=== PATIENT | male | born 2000 | race Hispanic/Latino ===

== ENCOUNTER 2022-10-14 13:52 | Emergency (ER) | payer OTHER, SELFPAY ==
--- NOTE | 2022-10-14 16:15 | EDPHYS ---
Physician Documentation [facility] Name: Lupillo Jernigan Age: 22 yrs Sex: Male : 2000 Arrival Date: 10/14/2022 Time: 13:52 Bed IW1 Private MD: ED Physician Devon Palma HPI: 10/14 17:23 This 22 yrs old Male presents to ER via EMS with complaints of Heat exhaustion kdr and syncope. 17:23 Patient states that he had walked to work for about an hour and a half. This is not kdr unusual activity for him. His time of arrival is usually 1 PM. Today he walked to work and then continue to be sweaty and hot after arriving and within about 15 to 20 minutes of arriving he had a syncopal episode. He said he felt lightheaded and dizzy and sat down and then nearly passed out. The next thing remembers is people asking him if he is okay. Patient otherwise did not injure himself is otherwise stable in the ED. Nontoxic-appearing and not back to baseline at time of initial presentation. Onset: The symptoms/episode began/occurred suddenly, just prior to arrival. Severity of symptoms: At their worst the symptoms were mild moderate incapacitating in the emergency department the symptoms have resolved. The patient has not experienced similar symptoms in the past. The patient has not recently seen a physician. Historical: - Allergies: 13:55 No Known Allergies; mb9 - Home Meds: 13:55 None [Active]; mb9 - PMHx: 13:55 Asthma; mb9 - PSHx: 13:55 None; mb9 - Immunization history:: Adult Immunizations up to date. - Social history:: Smoking status: Reported history of juuling and/or vaping. ROS: 17:23 Constitutional: Negative for fever, chills, and weight loss, Eyes: Negative for injury, kdr pain, redness, and discharge, ENT: Negative for injury, pain, and discharge, Neck: Negative for injury, pain, and swelling, Cardiovascular: Negative for chest pain, palpitations, and edema, Respiratory: Negative for shortness of breath, cough, wheezing, and pleuritic chest pain, Abdomen/GI: Negative for abdominal pain, nausea, vomiting, diarrhea, and constipation, Back: Negative for injury and pain, : Negative for injury, bleeding, discharge, and swelling, MS/Extremity: Negative for injury and deformity, Skin: Negative for injury, rash, and discoloration, Psych: Negative for depression, anxiety, suicide ideation, homicidal ideation, and hallucinations, Allergy/Immunology: Negative for hives, rash, and allergies, Endocrine: Negative for neck swelling, polydipsia, polyuria, polyphagia, and marked weight changes, Hematologic/Lymphatic: Negative for swollen nodes, abnormal bleeding, and unusual bruising. 17:23 Neuro: Positive for altered mental status, loss of consciousness, syncope, Negative for gait disturbance, headache, hearing loss, numbness, seizure activity, speech changes, tingling, tinnitus, tremor, visual changes, weakness. Exam: 17:23 Constitutional: This is a well developed, well nourished patient who is awake, alert, kdr and in no acute distress. Head/Face: Normocephalic, atraumatic. Eyes: Pupils equal round and reactive to light, extra-ocular motions intact. Lids and lashes normal. Conjunctiva and sclera are non-icteric and not injected. Cornea within normal limits. Periorbital areas with no swelling, redness, or edema. Neck: Trachea midline, no thyromegaly or masses palpated, and no cervical lymphadenopathy. Supple, full range of motion without nuchal rigidity, or vertebral point tenderness. No Meningismus. Chest/axilla: Normal chest wall appearance and motion. Nontender with no deformity. No lesions are appreciated. Cardiovascular: Regular rate and rhythm with a normal S1 and S2. No gallops, murmurs, or rubs. Normal PMI, no JVD. No pulse deficits. Respiratory: Lungs have equal breath sounds bilaterally, clear to auscultation and percussion. No rales, rhonchi or wheezes noted. No increased work of breathing, no retractions or nasal flaring. Abdomen/GI: Soft, non-tender, with normal bowel sounds. No distension or tympany. No guarding or rebound. No evidence of tenderness throughout. Back: No spinal tenderness. No costovertebral tenderness. Full range of motion. Skin: Warm, dry with normal turgor. Normal color with no rashes, no lesions, and no evidence of cellulitis. MS/ Extremity: Pulses equal, no cyanosis. Neurovascular intact. Full, normal range of motion. Neuro: Awake and alert, GCS 15, oriented to person, place, time, and situation. Cranial nerves II-XII grossly intact. Motor strength 5/5 in all extremities. Sensory grossly intact. Cerebellar exam normal. Normal gait. Psych: Awake, alert, with orientation to person, place and time. Behavior, mood, and affect are within normal limits. Vital Signs: 13:55 BP 130 / 80; Pulse 92; Resp 18; Temp 99.2; Pulse Ox 97% on R/A; Weight 108.86 kg; mb9 Height 5 ft. 7 in. ; Pain 0/10; 13:55 Body Mass Index 37.59 (108.86 kg, 170.18 cm) mb9 13:55 Pain Scale: Adult mb9 MDM: 16:15 Patient medically screened. kdr 17:23 Data reviewed: vital signs, nurses notes, lab test result(s). kdr Administered Medications: No medications were administered Disposition Summary: 10/14/22 16:15 Discharge Ordered Location: Home kdr Problem: new kdr Symptoms: are resolved kdr Condition: Stable kdr Diagnosis - Heat exhaustion, unspecified kdr - Dehydration kdr - Heat syncope kdr Followup: kdr - With: Private Physician - When: 2 - 3 days - Reason: If symptoms return, Further diagnostic work-up, Recheck today's complaints, Continuance of care, Re-evaluation by your physician Discharge Instructions: - Discharge Summary Sheet kdr - Dehydration, Adult kdr - Heat Exhaustion kdr - Dehydration, Adult, [id number] kdr - Rehydration, Adult kdr Forms: - Medication Reconciliation Form kdr - Thank You Letter kdr - Patient Portal Instructions kdr - Work release form eb Signatures: Dveon Palma MD MD kdr Jazz Hidalgo RN RN mb9
--- NOTE | 2022-10-14 16:15 | ER ---
Nurse's Notes [facility] Name: Lupillo Jernigan Age: 22 yrs Sex: Male : 2000 Arrival Date: 10/14/2022 Time: 13:52 Bed IW1 Private MD: Diagnosis: Heat exhaustion, unspecified;Dehydration;Heat syncope Presentation: 10/14 13:53 Chief complaint: EMS states: "Toned out for unwitnessed syncopal episode at work. Pt mb9 states he walked from [place] to [place], did not drink or eat today. Pt denies any pain and states he feels better now. Gave 1 liter of NS via 18 g left AC". Coronavirus screen: Vaccine status: Patient reports being unvaccinated. 13:53 Method Of Arrival: EMS: [facility] mb9 13:55 Ebola Screen: No symptoms or risks identified at this time. Initial Sepsis Screen: Does mb9 the patient meet any 2 criteria? No. Patient's initial sepsis screen is negative. Does the patient have a suspected source of infection? No. Patient's initial sepsis screen is negative. Risk Assessment: Do you want to hurt yourself or someone else? Patient reports no desire to harm self or others. Onset of symptoms was October 14, 2022. 13:55 Acuity: LANDEN 3 mb9 Triage Assessment: 13:56 General: Appears in no apparent distress. Behavior is calm, cooperative. Pain: Denies mb9 pain. Neuro: [place] Agitation-Sedation Scale (RASS): 0 - Alert and Calm Level of Consciousness is awake, alert, obeys commands, Oriented to person, place, time, situation, Appropriate for age Denies weakness dizziness. Cardiovascular: Patient's skin is warm and dry. Respiratory: Airway is patent Respiratory effort is even, unlabored, Respiratory pattern is regular, symmetrical. GI: No signs and/or symptoms were reported involving the gastrointestinal system. : No signs and/or symptoms were reported regarding the genitourinary system. Derm: Skin is pink, warm \\T\\ dry. Musculoskeletal: Range of motion: intact in all extremities. Historical: - Allergies: 13:55 No Known Allergies; mb9 - Home Meds: 13:55 None [Active]; mb9 - PMHx: 13:55 Asthma; mb9 - PSHx: 13:55 None; mb9 - Immunization history:: Adult Immunizations up to date. - Social history:: Smoking status: Reported history of juuling and/or vaping. Assessment: 13:57 Reassessment: see triage assessment. mb9 Vital Signs: 13:55 BP 130 / 80; Pulse 92; Resp 18; Temp 99.2; Pulse Ox 97% on R/A; Weight 108.86 kg; mb9 Height 5 ft. 7 in. ; Pain 0/10; 13:55 Body Mass Index 37.59 (108.86 kg, 170.18 cm) mb9 13:55 Pain Scale: Adult mb9 ED Course: 13:52 Patient arrived in ED. mb9 13:54 Devon Palma MD is Attending Physician. kdr 13:55 Triage completed. mb9 13:55 Arm band placed on. mb9 16:25 No provider procedures requiring assistance completed. IV discontinued, intact, ss bleeding controlled, No redness/swelling at site. Pressure dressing applied. Administered Medications: No medications were administered Medication: 13:57 VIS not applicable for this client. mb9 Outcome: 16:15 Discharge ordered by . kdr 16:25 Discharged to home ambulatory. ss 16:25 Condition: good 16:25 Discharge instructions given to patient, Instructed on discharge instructions, follow up and referral plans. Demonstrated understanding of instructions, follow-up care. 16:25 Patient left the ED. ss Signatures: Devon Palma MD MD [facility] Willow Valle RN RN Jazz Hidalgo RN RN mb9 Corrections: (The following items were deleted from the chart) 13:56 13:53 Chief complaint: EMS states: "Toned out for unwitnessed syncopal episode at work. mb9 Pt states he walked from [place] to [place], did not drink or eat today. Pt denies any pain and states he feels better now" mb9
[2022-10-14 16:53] VITALS: BP 130/80; TEMP 99.2; O2SAT 97
== END 2022-10-14 16:25 | disposition home or self-care (01) ==
LOC: ER 13:52
DX: T67.1XXA Heat syncope, initial encounter (principal); E86.0 Dehydration; T67.5XXA Heat exhaustion, unspecified, initial encounter
CPT/HCPCS: 99283

== ENCOUNTER 2023-01-13 17:38 | Emergency (ER) | payer SELFPAY ==
--- NOTE | 2023-01-13 17:51 | EDPHYS ---
Physician Documentation [facility] Name: Lupillo Jeringan Age: 22 yrs Sex: Male : 2000 Arrival Date: 01/13/2023 Time: 17:38 Bed Waiting Private MD: ED Physician Jamel Zimmerman HPI: 01/13 17:47 This 22 yrs old Male presents to ER via Unassigned with complaints of Fall jh7 Injury. 17:47 Details of fall: The patient fell from a height, down approximately 2 stairs. Onset: jh7 The symptoms/episode began/occurred acutely. Associated injuries: The patient sustained no obvious injury. Patient states that he slipped down 2 steps at work and I told him to come to the ER to get checked out. Denies any pain or injuries. States that he did not hit his head or pass out. Reports that he just needs a note to return to work. No medical problems or allergies.. Historical: - Allergies: 17:53 No Known Allergies; cm10 - PMHx: 17:53 Asthma; cm10 - Immunization history:: Adult Immunizations unknown. - Social history:: Smoking status: Patient denies any tobacco usage or history of. ROS: 17:47 Constitutional: Negative for fever, chills, and weight loss, Eyes: Negative for injury, jh7 pain, redness, and discharge, ENT: Negative for injury, pain, and discharge, Neck: Negative for injury, pain, and swelling, Cardiovascular: Negative for chest pain, palpitations, and edema, Respiratory: Negative for shortness of breath, cough, wheezing, and pleuritic chest pain, Abdomen/GI: Negative for abdominal pain, nausea, vomiting, diarrhea, and constipation, Back: Negative for injury and pain, MS/Extremity: Negative for injury and deformity, Skin: Negative for injury, rash, and discoloration, Neuro: Negative for headache, weakness, numbness, tingling, and seizure, 17:47 All other systems are negative, Exam: 17:47 Constitutional: This is a well developed, well nourished patient who is awake, alert, jh7 and in no acute distress. Head/Face: Normocephalic, atraumatic. Neck: Trachea midline, no thyromegaly or masses palpated, and no cervical lymphadenopathy. Supple, full range of motion without nuchal rigidity, or vertebral point tenderness. No Meningismus. Cardiovascular: Regular rate and rhythm with a normal S1 and S2. No gallops, murmurs, or rubs. Normal PMI, no JVD. No pulse deficits. Respiratory: Lungs have equal breath sounds bilaterally, clear to auscultation and percussion. No rales, rhonchi or wheezes noted. No increased work of breathing, no retractions or nasal flaring. Back: No spinal tenderness. No costovertebral tenderness. Full range of motion. Skin: Warm, dry with normal turgor. Normal color with no rashes, no lesions, and no evidence of cellulitis. MS/ Extremity: Pulses equal, no cyanosis. Neurovascular intact. Full, normal range of motion. Neuro: Awake and alert, GCS 15, oriented to person, place, time, and situation. Motor strength 5/5 in all extremities. Sensory grossly intact. Normal gait. Vital Signs: 17:52 BP 127 / 89; Pulse 85; Resp 18; Temp 97.8; Pulse Ox 96% ; Weight 113.4 kg; Height 5 ft. cm10 4 in. ; 17:52 Body Mass Index 42.91 (113.40 kg, 162.56 cm) cm10 MDM: 17:47 Patient medically screened. [facility] 17:49 Differential diagnosis: closed head injury, contusion, sprain, strain. Data reviewed: [facility] vital signs, nurses notes. Counseling: I had a detailed discussion with the patient and/or guardian regarding the historical points, exam findings, and any diagnostic results supporting the discharge/admit diagnosis, to return to the emergency department if symptoms worsen or persist or if there are any questions or concerns that arise at home. ED course: Normal exam, work note provided.. Administered Medications: No medications were administered Disposition: 21:41 Co-signature as Attending Physician, Jamel Zimmerman MD I agree with the assessment and cp3 plan of care. Disposition Summary: 01/13/23 17:50 Discharge Ordered Notes: Location: Home [facility] Problem: new [facility] Symptoms: are resolved [facility] Condition: Stable [facility] Diagnosis - Fall (on) (from) other stairs and steps [facility] Followup: [facility] - With: Private Physician - When: As needed - Reason: Discharge Instructions: - Discharge Summary Sheet [facility] - Fall Prevention in the Home, Adult [facility] - Form - Excuse from Work, School, or Physical Activity [facility] - Form - Return To Work [facility] Forms: - Medication Reconciliation Form [facility] - Thank You Letter [facility] - Patient Portal Instructions [facility] - Leadership Thank You Letter [facility] Signatures: Jamel Zimmerman MD MD cp3 Marita Jacobson, RIDING COACH RIDING COACH [facility] Maya Cardoso RN RN cm10
--- NOTE | 2023-01-13 17:56 | ER ---
Nurse's Notes [facility] Name: Lupillo Jernigan Age: 22 yrs Sex: Male : 2000 Arrival Date: 01/13/2023 Time: 17:38 Bed Waiting Private MD: Diagnosis: Fall (on) (from) other stairs and steps Presentation: 01/13 17:52 Chief complaint: Patient states: he had a fall at work today and was told that he cm10 needed to come to the ED to come get checked out. Pt has no complaints. Coronavirus screen: Vaccine status: Patient reports being unvaccinated. Client denies travel out of the [place] in the last 14 days. Ebola Screen: Patient denies travel to an Ebola-affected area in the 21 days before illness onset. No symptoms or risks identified at this time. Initial Sepsis Screen: Does the patient meet any 2 criteria? No. Patient's initial sepsis screen is negative. Does the patient have a suspected source of infection? No. Patient's initial sepsis screen is negative. Risk Assessment: Do you want to hurt yourself or someone else? Patient reports no desire to harm self or others. Onset of symptoms was January 13, 2023. 17:52 Method Of Arrival: Ambulatory cm10 17:52 Acuity: LANDEN 4 cm10 Triage Assessment: 17:53 General: Appears in no apparent distress. comfortable, Behavior is calm, cooperative. cm10 Pain: Denies pain. EENT: No deficits noted. No signs and/or symptoms were reported regarding the EENT system. Neuro: No deficits noted. [place] Agitation-Sedation Scale (RASS): 0 - Alert and Calm Level of Consciousness is awake, alert, obeys commands, Oriented to person, place, time, situation. Cardiovascular: No deficits noted. Patient's skin is warm and dry. Respiratory: No deficits noted. Airway is patent Respiratory effort is even, unlabored, Respiratory pattern is regular, symmetrical. GI: No deficits noted. No signs and/or symptoms were reported involving the gastrointestinal system. : No deficits noted. No signs and/or symptoms were reported regarding the genitourinary system. Derm: No deficits noted. No signs and/or symptoms reported regarding the dermatologic system. Skin is intact, Skin is pink, warm \T\ dry. Musculoskeletal: No deficits noted. No signs and/or symptoms reported regarding the musculoskeletal system. Range of motion: intact in all extremities. Historical: - Allergies: 17:53 No Known Allergies; cm10 - PMHx: 17:53 Asthma; cm10 - Immunization history:: Adult Immunizations unknown. - Social history:: Smoking status: Patient denies any tobacco usage or history of. Screenin:[address] [facility] ED Fall Risk Assessment (Adult) History of falling in the last 3 months, cm10 including since admission Yes- single mechanical fall (1 pt) Confusion or Disorientation No (0 pts) Intoxicated or Sedated No (0 pts) Impaired Gait No (0 pts) Mobility Assist Device Used No (0 pt) Altered Elimination No (0 pt) Score/Fall Risk Level 0 - 2 = Low Risk Oriented to surroundings, Maintained a safe environment, Hourly rounding (assess needs \T\ fall precautionary measures) done. Abuse screen: Denies threats or abuse. Denies injuries from another. Nutritional screening: No deficits noted. Tuberculosis screening: No symptoms or risk factors identified. Vital Signs: 17:52 BP 127 / 89; Pulse 85; Resp 18; Temp 97.8; Pulse Ox 96% ; Weight 113.4 kg; Height 5 ft. cm10 4 in. ; 17:52 Body Mass Index 42.91 (113.40 kg, 162.56 cm) cm10 ED Course: 17:43 Patient arrived in ED. ts1 17:47 Marita Jacobson FNP [facility]. jh7 17:47 Jamel Zimmerman MD is Attending Physician. 7 17:53 Triage completed. cm10 17:54 Arm band placed on Patient placed in waiting room. cm10 17:54 Patient has correct armband on for positive identification. Provided Education on: ER cm10 process and procedures. . 17:54 No provider procedures requiring assistance completed. Patient did not have IV access cm10 during this emergency room visit. Administered Medications: No medications were administered Medication: 17:54 VIS not applicable for this client. cm10 Outcome: 17:50 Discharge ordered by . 7 17:54 Discharged to home ambulatory, cm10 17:54 Condition: good 17:54 Discharge instructions given to patient, Instructed on discharge instructions, follow up and referral plans. Demonstrated understanding of instructions, follow-up care, 17:55 Patient left the ED. cm10 Signatures: Marita Jacobson, CRYSTALIZER CRYSTALIZER jh7 Jamilah Alexis PAS PAS ts1 Maya Cardoso, RN RN cm10
[2023-01-13 18:13] VITALS: BP 127/89; TEMP 97.8; O2SAT 96
== END 2023-01-13 17:55 | disposition home or self-care (01) ==
LOC: ER 17:38
DX: Z04.2 Encounter for examination and observation following work accident (principal); W10.9XXA Fall (on) (from) unspecified stairs and steps, initial encounter; Y93.9 Activity, unspecified; Y92.89 Other specified places as the place of occurrence of the external cause; Y99.0 Civilian activity done for income or pay; Z71.1 Person with feared health complaint in whom no diagnosis is made
CPT/HCPCS: 99282